=== PATIENT | male | born 1940 | race African-American/Black ===

== ENCOUNTER 2018-02-13 10:55 | Emergency (ER) | payer OTHER, MEDICAID ==
[~2018-02-13] VITALS: Ht 172.7 cm; Wt 80.0 kg
[~2018-02-13 10:55] MED LIST: METFORMIN
[2018-02-13] MEDS ORDERED: IBUPROFEN 600MG TABLET PO ONE (12:30)
[2018-02-13 12:46] VITALS: BP 143/90
== END 2018-02-13 12:50 | disposition home or self-care (01) ==
LOC: ER 10:55
DX: T14.8XXA Other injury of unspecified body region, initial encounter (principal); V03.90XA Pedestrian on foot injured in collision with car, pick-up truck or van, unspecified whether traffic or nontraffic accident, initial encounter; Y93.89 Activity, other specified; Y92.488 Other paved roadways as the place of occurrence of the external cause
CPT/HCPCS: 99283

== ENCOUNTER 2018-03-14 16:22 | Emergency (ER) | payer OTHER ==
[~2018-03-14] VITALS: Ht 175.3 cm; Wt 75.0 kg
[2018-03-14 16:52] VITALS: BP 159/88
== END 2018-03-14 22:01 | disposition home or self-care (01) ==
LOC: ER 16:22
DX: S40.011A Contusion of right shoulder, initial encounter (principal); S70.01XA Contusion of right hip, initial encounter; E11.9 Type 2 diabetes mellitus without complications; I10 Essential (primary) hypertension; V03.19XA Pedestrian with other conveyance injured in collision with car, pick-up truck or van in traffic accident, initial encounter; Y93.89 Activity, other specified; Y92.89 Other specified places as the place of occurrence of the external cause; Y99.8 Other external cause status; Z86.73 Personal history of transient ischemic attack (TIA), and cerebral infarction without residual deficits; Z87.891 Personal history of nicotine dependence
CPT/HCPCS: 73030; 73080; 73502; 99283

== ENCOUNTER 2020-09-14 08:27 | Emergency (ER) | payer OTHER, MEDICAID ==
[~2020-09-14] VITALS: Ht 182.9 cm; Wt 82.0 kg
[2020-09-14] MEDS ORDERED: SODIUM CHLORIDE 0.9% 1,000 ML IV ONE (09:30)
[2020-09-14 10:04] LABS: BASOPHILS % 0.5 % (0.0-2.0); EOSINOPHILS % 0.2 % (0.0-5.0); HEMATOCRIT. 41.9 % (42.0-52.0); HEMOGLOBIN. 13.6 g/dL (14.0-18.0); LYMPHOCYTES % 10.4 % (20.0-50.0); MEAN CORPUSCULAR HEMOGLOBIN 26.8 pg (28.0-32.0); MEAN CORPUSCULAR VOLUME 82.3 fL (80.0-94.0); MEAN PLATELET VOLUME 7.7 fl (7.4-10.4); MONOCYTES % 9.1 % (2.0-8.0); NEUTROPHILS % 79.8 % (40.0-76.0); PLATELET 208 x1000/uL (130-400); RED BLOOD CELL COUNT 5.09 mill/uL (4.7-6.1); RED CELL DISTRIBUTION WIDTH 15.8 % (11.6-14.6)
[2020-09-14 10:11] LABS: CHLORIDE 106 mEq/L (98-107)
[2020-09-14 10:16] LABS: INR 1.1; PROTHROMBIN TIME 11.4 sec (9.6-11.0)
[2020-09-14 10:25] LABS: CLARITY URINE CLEAR (CLEAR); COLOR URINE YELLOW (YELLOW); KETONES URINE NEGATIVE (NEGATIVE); LEUKOCYTE ESTERASE URINE NEGATIVE (NEGATIVE); NITRITE URINE NEGATIVE (NEGATIVE); OCCULT BLOOD URINE NEGATIVE (NEGATIVE); PH URINE 6.5 (4.5-8.0); PROTEIN URINE NEGATIVE (NEGATIVE)
[2020-09-14 13:34] VITALS: BP 150/77
== END 2020-09-14 13:36 | disposition home or self-care (01) ==
LOC: ER 08:27
DX: R32 Unspecified urinary incontinence (principal); E11.9 Type 2 diabetes mellitus without complications
CPT/HCPCS: 36415; 80053; 81003; 85025; 85610; 96360; 99283; J7030

== ENCOUNTER 2020-12-06 18:12 | Inpatient (IN) | payer OTHER, MEDICAID ==
[~2020-12-06] VITALS: Ht 170.2 cm; Wt 78.2 kg
[~2020-12-06 18:12] MED LIST changes: +ASPI-1160 PO; +LIP40 PO; +RISP1 PO
[2020-12-06] MEDS ORDERED: SODIUM CHLORIDE 0.9% 1,000 ML IV ONE (19:00)
[2020-12-06 19:13] LABS: BASOPHILS % 0.5 % (0.0-2.0); EOSINOPHILS % 0.6 % (0.0-5.0); HEMATOCRIT. 40.8 % (42.0-52.0); HEMOGLOBIN. 13.5 g/dL (14.0-18.0); LYMPHOCYTES % 10.3 % (20.0-50.0); MEAN CORPUSCULAR HEMOGLOBIN 27.7 pg (28.0-32.0); MEAN CORPUSCULAR VOLUME 83.5 fL (80.0-94.0); MEAN PLATELET VOLUME 7.4 fl (7.4-10.4); MONOCYTES % 7.1 % (2.0-8.0); NEUTROPHILS % 81.5 % (40.0-76.0); PLATELET 290 x1000/uL (130-400); RED BLOOD CELL COUNT 4.88 mill/uL (4.7-6.1); RED CELL DISTRIBUTION WIDTH 15.4 % (11.6-14.6)
[2020-12-06 19:21] LABS: CHLORIDE 106 mEq/L (98-107)
[2020-12-06 19:25] LABS: ETHANOL BLOOD < 10 mg/dL
[2020-12-06 19:29] LABS: CREATINE KINASE 493 IU/L (39-308)
[2020-12-06] MEDS ORDERED: LORAZEPAM 2MG/ML CPJ IV NR (20:15)
[2020-12-06 21:40] LABS: CLARITY URINE CLEAR (CLEAR); COLOR URINE YELLOW (YELLOW); KETONES URINE TRACE (NEGATIVE); LEUKOCYTE ESTERASE URINE NEGATIVE (NEGATIVE); NITRITE URINE NEGATIVE (NEGATIVE); OCCULT BLOOD URINE NEGATIVE (NEGATIVE); PH URINE 5.5 (4.5-8.0); PROTEIN URINE 1+ (NEGATIVE); SPECIFIC GRAVITY URINE 1.027 (1.005-1.030)
[2020-12-06 21:48] LABS: CANNABINOID URINE SCREEN NEGATIVE (NEGATIVE); PHENCYCLIDINE URINE SCREEN NEGATIVE (NEGATIVE)
[2020-12-06 21:49] LABS: *AMPHETAMINES SCREEN URINE NEGATIVE (NEGATIVE); *BARBITURATES SCREEN URINE NEGATIVE (NEGATIVE); *BENZODIAZEPINES SCREEN URINE NEGATIVE (NEGATIVE); *COCAINE SCREEN URINE NEGATIVE (NEGATIVE); METHADONE URINE SCREEN NEGATIVE (NEGATIVE); OPIATES URINE SCREEN NEGATIVE (NEGATIVE)
[2020-12-07 05:14] VITALS: BP 113/68
[2020-12-07] MEDS ORDERED: DEXTROSE 50% WATER 50ML SYRINGE IV PRN (05:30)
[2020-12-07] MEDS ORDERED: ACETAMINOPHEN 325MG TABLET PO PRN (05:30)
[2020-12-07] MEDS: INSULIN LISPRO 100 UNITS/ML SUBCUT SCH ×4 (05:47→20:36)
[2020-12-07] MEDS: BLOOD SUGAR DIAGNOSTIC STRIP TEST SCH ×4 (05:47→20:36)
[2020-12-07 08:30] VITALS: BP 123/80
[2020-12-07] MEDS ORDERED: SODIUM CHLORIDE 0.9% 1,000 ML IV SCH (09:00)
[2020-12-07] MEDS: ASPIRIN 81MG TABLET PO SCH (09:56)
[2020-12-07] MEDS: ENOXAPARIN 40MG/0.4ML SYR SUBCUT SCH (09:57)
[2020-12-07 11:57] LABS: BASOPHILS % 0.6 % (0.0-2.0); EOSINOPHILS % 0.5 % (0.0-5.0); HEMATOCRIT. 41.1 % (42.0-52.0); HEMOGLOBIN. 13.4 g/dL (14.0-18.0); LYMPHOCYTES % 16.1 % (20.0-50.0); MEAN CORPUSCULAR HEMOGLOBIN 27.2 pg (28.0-32.0); MEAN CORPUSCULAR VOLUME 83.6 fL (80.0-94.0); MEAN PLATELET VOLUME 8.1 fl (7.4-10.4); MONOCYTES % 8.1 % (2.0-8.0); NEUTROPHILS % 74.7 % (40.0-76.0); PLATELET 302 x1000/uL (130-400); RED BLOOD CELL COUNT 4.92 mill/uL (4.7-6.1); RED CELL DISTRIBUTION WIDTH 15.5 % (11.6-14.6)
[2020-12-07 11:58] LABS: CHLORIDE 110 mEq/L (98-107)
[2020-12-07 12:00] VITALS: BP 138/87
[2020-12-07 12:07] LABS: CREATINE KINASE 602 IU/L (39-308); CREATINE KINASE MB FRACTION 7.9 ng/mL (0.5-3.6)
[2020-12-07 12:26] LABS: INR 1.1; PROTHROMBIN TIME 11.5 sec (9.6-11.0)
[2020-12-07] MEDS: CEFTRIAXONE 1,000 MG in DEXTROSE 5% WATER 50 ML IV SCH (13:11)
[2020-12-07] MEDS ORDERED: BISACODYL 10MG SUPP PR PRN (13:15)
[2020-12-07] MEDS ORDERED: HYDRALAZINE 20MG/ML VIAL IV PRN (13:15)
[2020-12-07] MEDS ORDERED: ONDANSETRON HCL 4MG/2ML INJ IV PRN (13:15)
[2020-12-07] MEDS ORDERED: IPRATROPIUM/ALBUTEROL 0.5-3(2.5)MG/3ML NEB HHN PRN (13:15)
[2020-12-07 14:02] LABS: BG BASE EXCESS -2.2 mmol/L (-2.0-2.0); BG CARBOXYHEMOGLOBIN 0.4 % (0.5-1.5); BG DEOXYHEMOGLOBIN 4.1 % (0.0-5.0); BG FRACTION INSPIRED OXYGEN 21; BG HCO3 ACT 21.4 mmol/L (22.0-26.0); BG METHEMOGLOBIN 0.3 % (0.0-1.5); BG OXYGEN SATURATION 95.9 % (92.0-98.5); BG OXYHEMOGLOBIN 95.2 % (94.0-97.0); BG PCO2 33.2 mmHg (35.0-45.0); BG PH 7.427 (7.350-7.450); BG PO2 81.4 mmHg (75.0-100.0); BG SAMPLE SITE LEFT RADIAL; BG VENT MODE ROOM AIR
[2020-12-07 16:30] VITALS: BP 145/92
[2020-12-07] MEDS: DEXT 5%/0.45% NACL 1000ML 1,000 ML IV SCH (17:04)
[2020-12-07 19:31] LABS: CREATINE KINASE MB FRACTION 5.4 ng/mL (0.5-3.6)
[2020-12-07] MEDS: LORAZEPAM 2MG/ML CPJ IV PRN (20:33)
[2020-12-07] MEDS: MEMANTINE HCL 5MG TABLET PO SCH (21:54)
[2020-12-08] VITALS: BP 133/91
[2020-12-08] MEDS: LORAZEPAM 2MG/ML CPJ IV PRN ×4 (01:26→21:03)
[2020-12-08 04:00] VITALS: BP 130/90
[2020-12-08] MEDS: DEXT 5%/0.45% NACL 1000ML 1,000 ML IV SCH ×2 (05:01→16:55)
[2020-12-08] MEDS: BLOOD SUGAR DIAGNOSTIC STRIP TEST SCH ×4 (06:40→21:13)
[2020-12-08] MEDS: INSULIN LISPRO 100 UNITS/ML SUBCUT SCH ×4 (07:10→21:00)
[2020-12-08 08:00] VITALS: BP 141/77
[2020-12-08] MEDS: CEFTRIAXONE 1,000 MG in DEXTROSE 5% WATER 50 ML IV SCH (10:17)
[2020-12-08] MEDS: MEMANTINE HCL 5MG TABLET PO SCH ×2 (10:17→21:03)
[2020-12-08] MEDS: ASPIRIN 81MG TABLET PO SCH (10:17)
[2020-12-08] MEDS: ENOXAPARIN 40MG/0.4ML SYR SUBCUT SCH (10:17)
[2020-12-08 12:17] VITALS: BP 147/72
[2020-12-08 16:00] VITALS: BP 144/86
[2020-12-08 16:51] LABS: BASOPHILS % 0.5 % (0.0-2.0); EOSINOPHILS % 2.2 % (0.0-5.0); HEMATOCRIT. 36.8 % (42.0-52.0); HEMOGLOBIN. 12.2 g/dL (14.0-18.0); LYMPHOCYTES % 15.8 % (20.0-50.0); MEAN CORPUSCULAR HEMOGLOBIN 27.5 pg (28.0-32.0); MEAN CORPUSCULAR VOLUME 83.2 fL (80.0-94.0); MEAN PLATELET VOLUME 7.6 fl (7.4-10.4); MONOCYTES % 9.4 % (2.0-8.0); NEUTROPHILS % 72.1 % (40.0-76.0); PLATELET 278 x1000/uL (130-400); RED BLOOD CELL COUNT 4.42 mill/uL (4.7-6.1); RED CELL DISTRIBUTION WIDTH 15.3 % (11.6-14.6)
[2020-12-08 16:58] LABS: CHLORIDE 109 mEq/L (98-107)
[2020-12-08 20:00] VITALS: BP 165/78
[2020-12-09] VITALS: BP 153/93
[2020-12-09] MEDS: DEXT 5%/0.45% NACL 1000ML 1,000 ML IV SCH ×2 (00:44→20:29)
[2020-12-09 04:00] VITALS: BP 171/117
[2020-12-09] MEDS: BLOOD SUGAR DIAGNOSTIC STRIP TEST SCH ×4 (06:41→20:21)
[2020-12-09] MEDS: INSULIN LISPRO 100 UNITS/ML SUBCUT SCH ×4 (06:42→20:21)
[2020-12-09 08:00] VITALS: BP 157/95
[2020-12-09] MEDS: LORAZEPAM 2MG/ML CPJ IV PRN (10:12)
[2020-12-09] MEDS: CEFTRIAXONE 1,000 MG in DEXTROSE 5% WATER 50 ML IV SCH (10:13)
[2020-12-09] MEDS ORDERED: LORAZEPAM 2MG/ML CPJ IV PRN (10:45)
[2020-12-09] MEDS: ASPIRIN 81MG TABLET PO SCH (11:06)
[2020-12-09] MEDS: MEMANTINE HCL 5MG TABLET PO SCH ×2 (11:06→20:26)
[2020-12-09] MEDS: ENOXAPARIN 40MG/0.4ML SYR SUBCUT SCH (11:07)
[2020-12-09 16:00] VITALS: BP 145/78
[2020-12-09 16:19] LABS: BASOPHILS % 0.9 % (0.0-2.0); EOSINOPHILS % 2.3 % (0.0-5.0); HEMOGLOBIN. 12.6 g/dL (14.0-18.0); LYMPHOCYTES % 22.2 % (20.0-50.0); MEAN CORPUSCULAR HEMOGLOBIN 27.5 pg (28.0-32.0); MEAN CORPUSCULAR VOLUME 83.3 fL (80.0-94.0); MEAN PLATELET VOLUME 7.6 fl (7.4-10.4); NEUTROPHILS % 61.6 % (40.0-76.0); PLATELET 289 x1000/uL (130-400); RED BLOOD CELL COUNT 4.56 mill/uL (4.7-6.1); RED CELL DISTRIBUTION WIDTH 15.3 % (11.6-14.6)
[2020-12-09 16:22] LABS: CHLORIDE 108 mEq/L (98-107)
[2020-12-09 20:00] VITALS: BP 128/86
[2020-12-09] MEDS: QUETIAPINE FUMARATE 25MG TABLET PO SCH (20:26)
[2020-12-09 22:00] VITALS: BP 158/80
[2020-12-10] VITALS: BP 158/57
[2020-12-10 04:00] VITALS: BP 154/70
[2020-12-10] MEDS: BLOOD SUGAR DIAGNOSTIC STRIP TEST SCH ×4 (06:34→20:36)
[2020-12-10] MEDS: INSULIN LISPRO 100 UNITS/ML SUBCUT SCH ×4 (06:34→20:37)
[2020-12-10 06:39] LABS: BASOPHILS % 1.1 % (0.0-2.0); EOSINOPHILS % 3.8 % (0.0-5.0); HEMATOCRIT. 38.2 % (42.0-52.0); HEMOGLOBIN. 12.7 g/dL (14.0-18.0); LYMPHOCYTES % 23.7 % (20.0-50.0); MEAN CORPUSCULAR HEMOGLOBIN 27.9 pg (28.0-32.0); MEAN CORPUSCULAR VOLUME 84.1 fL (80.0-94.0); MEAN PLATELET VOLUME 7.5 fl (7.4-10.4); MONOCYTES % 12.5 % (2.0-8.0); NEUTROPHILS % 58.9 % (40.0-76.0); PLATELET 301 x1000/uL (130-400); RED BLOOD CELL COUNT 4.55 mill/uL (4.7-6.1); RED CELL DISTRIBUTION WIDTH 15.2 % (11.6-14.6)
[2020-12-10 06:50] LABS: CHLORIDE 108 mEq/L (98-107)
[2020-12-10 08:00] VITALS: BP 134/71
[2020-12-10] MEDS: MEMANTINE HCL 5MG TABLET PO SCH ×2 (08:12→20:31)
[2020-12-10] MEDS: ASPIRIN 81MG TABLET PO SCH (08:12)
[2020-12-10] MEDS: QUETIAPINE FUMARATE 25MG TABLET PO SCH ×2 (08:12→20:32)
[2020-12-10] MEDS: DEXT 5%/0.45% NACL 1000ML 1,000 ML IV SCH (08:13)
[2020-12-10] MEDS: ENOXAPARIN 40MG/0.4ML SYR SUBCUT SCH (08:13)
[2020-12-10] MEDS: CEFTRIAXONE 1,000 MG in DEXTROSE 5% WATER 50 ML IV SCH (08:13)
[2020-12-10] MEDS ORDERED: IOHEXOL-350 100 ML BOTTLE ONE (12:16)
[2020-12-10] MEDS: LORAZEPAM 2MG/ML CPJ IV PRN ×2 (15:44→22:03)
[2020-12-10] MEDS: LEVOFLOXACIN 500MG PREMIX 100 ML IV SCH (15:44)
[2020-12-10 16:00] VITALS: BP 136/74
[2020-12-10 20:00] VITALS: BP 135/84
[2020-12-11] VITALS: BP 157/94
[2020-12-11] MEDS: DEXT 5%/0.45% NACL 1000ML 1,000 ML IV SCH ×2 (04:54→11:15)
[2020-12-11] MEDS: BLOOD SUGAR DIAGNOSTIC STRIP TEST SCH ×3 (06:09→17:23)
[2020-12-11] MEDS: INSULIN LISPRO 100 UNITS/ML SUBCUT SCH ×3 (06:10→17:10)
[2020-12-11 06:34] LABS: CHLORIDE 110 mEq/L (98-107)
[2020-12-11 06:35] LABS: BASOPHILS % 0.7 % (0.0-2.0); EOSINOPHILS % 3.6 % (0.0-5.0); HEMATOCRIT. 36.3 % (42.0-52.0); LYMPHOCYTES % 22.9 % (20.0-50.0); MEAN CORPUSCULAR HEMOGLOBIN 27.4 pg (28.0-32.0); MEAN CORPUSCULAR VOLUME 83.3 fL (80.0-94.0); MONOCYTES % 12.5 % (2.0-8.0); NEUTROPHILS % 60.3 % (40.0-76.0); PLATELET 252 x1000/uL (130-400); RED BLOOD CELL COUNT 4.36 mill/uL (4.7-6.1); RED CELL DISTRIBUTION WIDTH 15.1 % (11.6-14.6)
[2020-12-11 08:00] VITALS: BP 159/76
[2020-12-11] MEDS: MEMANTINE HCL 5MG TABLET PO SCH ×2 (08:28→20:38)
[2020-12-11] MEDS: ASPIRIN 81MG TABLET PO SCH (08:28)
[2020-12-11] MEDS: QUETIAPINE FUMARATE 50MG TABLET PO SCH ×2 (08:29→20:38)
[2020-12-11] MEDS: ENOXAPARIN 40MG/0.4ML SYR SUBCUT SCH (08:29)
[2020-12-11] MEDS: LORAZEPAM 2MG/ML CPJ IV PRN ×2 (08:29→16:30)
[2020-12-11] MEDS: CEFTRIAXONE 1,000 MG in DEXTROSE 5% WATER 50 ML IV SCH (08:38)
[2020-12-11 12:00] VITALS: BP 142/29
[2020-12-11] MEDS: LEVOFLOXACIN 500MG PREMIX 100 ML IV SCH (12:22)
[2020-12-11 16:00] VITALS: BP 126/78
[2020-12-11 20:00] VITALS: BP 178/98
== END 2020-12-11 21:53 | DRG 91 ==
LOC: ER 18:12 → 7EST 12-07 02:02 → ENRESERV 12-07 02:52
PROVIDERS: ADMIT Internal Medicine; ATTEND Internal Medicine
DX: G92.8 Other toxic encephalopathy (principal); I50.43 Acute on chronic combined systolic (congestive) and diastolic (congestive) heart failure; M62.82 Rhabdomyolysis; I11.0 Hypertensive heart disease with heart failure; D64.9 Anemia, unspecified; E11.9 Type 2 diabetes mellitus without complications; R29.6 Repeated falls; T50.905A Adverse effect of unspecified drugs, medicaments and biological substances, initial encounter; E04.9 Nontoxic goiter, unspecified; F03.90 Unspecified dementia, unspecified severity, without behavioral disturbance, psychotic disturbance, mood disturbance, and anxiety; Z20.822 Contact with and (suspected) exposure to COVID-19; F20.9 Schizophrenia, unspecified; I77.810 Thoracic aortic ectasia; Z79.899 Other long term (current) drug therapy; Y92.89 Other specified places as the place of occurrence of the external cause; Z79.82 Long term (current) use of aspirin; I69.30 Unspecified sequelae of cerebral infarction; Z79.84 Long term (current) use of oral hypoglycemic drugs
CPT/HCPCS: 36415; 36600; 71045; 71275; 80048; 80053; 80305; 80320; 81003; 82140; 82375; 82550; 82553; 82805; 82962; 83036; 83605; 83880; 84145; 84484; 85025; 87426; 92610; 93005; 93306; 97162; 97165; 97530; 99285; J0360; J0696; J1650; J1815; J1956; J2060; J7030; J7060; Q9967; G0480

== ENCOUNTER 2021-02-03 13:42 | Emergency (ER) | payer OTHER, MEDICAID ==
[~2021-02-03] VITALS: Ht 182.9 cm; Wt 82.0 kg
[~2021-02-03 13:42] MED LIST changes: -METFORMIN; -RISP1 PO
[2021-02-03] MEDS ORDERED: LIDOCAINE HCL/EPINEPHRINE 1%-EPI 1:100,000 50 ML VIAL INFIL ONE (16:00)
[2021-02-03 16:32] LABS: BASOPHILS % 0.4 % (0.0-2.0); EOSINOPHILS % 0.4 % (0.0-5.0); HEMATOCRIT. 42.5 % (42.0-52.0); HEMOGLOBIN. 13.5 g/dL (14.0-18.0); LYMPHOCYTES % 22.5 % (20.0-50.0); MEAN CORPUSCULAR VOLUME 85.1 fL (80.0-94.0); MONOCYTES % 9.8 % (2.0-8.0); NEUTROPHILS % 66.9 % (40.0-76.0); PLATELET 199 x1000/uL (130-400); RED CELL DISTRIBUTION WIDTH 15.5 % (11.6-14.6)
[2021-02-03] MEDS ORDERED: LIDOCAINE HCL/EPINEPHRINE 1%-EPI 1:100,000 20 ML VIAL INFIL NR (17:06)
[2021-02-03 17:26] LABS: CHLORIDE 110 mEq/L (98-107)
[2021-02-03 21:54] VITALS: BP 115/70
== END 2021-02-03 21:56 | disposition home or self-care (01) ==
LOC: ER 13:50
DX: S01.111A Laceration without foreign body of right eyelid and periocular area, initial encounter (principal); R51.9 Headache, unspecified; I10 Essential (primary) hypertension; E11.9 Type 2 diabetes mellitus without complications; W03.XXXA Other fall on same level due to collision with another person, initial encounter; Y93.89 Activity, other specified; Y92.89 Other specified places as the place of occurrence of the external cause; Y99.8 Other external cause status; Z86.73 Personal history of transient ischemic attack (TIA), and cerebral infarction without residual deficits; Z86.59 Personal history of other mental and behavioral disorders
CPT/HCPCS: 12013; 36415; 70450; 71045; 72125; 80053; 83880; 84484; 85025; 93005; 99285; J3490

== ENCOUNTER 2021-05-26 02:57 | Emergency (ER) | payer OTHER, MEDICAID ==
[~2021-05-26] VITALS: Ht 180.3 cm; Wt 73.0 kg
[2021-05-26] MEDS ORDERED: ACETAMINOPHEN 500MG TABLET PO ONE (04:00)
[2021-05-26] MEDS ORDERED: ACETAMINOPHEN 325MG TABLET PO ONE (09:30)
[2021-05-26] MEDS ORDERED: QUETIAPINE FUMARATE 25MG TABLET PO SCH (09:30)
[2021-05-26 22:45] VITALS: BP 152/71
== END 2021-05-26 23:12 | disposition home or self-care (01) ==
LOC: ER 02:57
DX: M79.602 Pain in left arm (principal); F03.90 Unspecified dementia, unspecified severity, without behavioral disturbance, psychotic disturbance, mood disturbance, and anxiety; I10 Essential (primary) hypertension; E11.9 Type 2 diabetes mellitus without complications; Z86.73 Personal history of transient ischemic attack (TIA), and cerebral infarction without residual deficits; Z86.59 Personal history of other mental and behavioral disorders
CPT/HCPCS: 73030; 73080; 73110; 99284

== ENCOUNTER 2021-06-24 18:06 | Inpatient (IN) | payer OTHER, MEDICAID ==
[~2021-06-24] VITALS: Ht 177.8 cm; Wt 54.0 kg
[2021-06-24 19:37] LABS: BASOPHILS % 0.5 % (0.0-2.0); EOSINOPHILS % 0.1 % (0.0-5.0); HEMATOCRIT. 37.1 % (42.0-52.0); HEMOGLOBIN. 12.1 g/dL (14.0-18.0); LYMPHOCYTES % 9.9 % (20.0-50.0); MEAN CORPUSCULAR HEMOGLOBIN 28.7 pg (28.0-32.0); MEAN CORPUSCULAR VOLUME 88.1 fL (80.0-94.0); MEAN PLATELET VOLUME 7.7 fl (7.4-10.4); MONOCYTES % 5.5 % (2.0-8.0); PLATELET 214 x1000/uL (130-400); RED BLOOD CELL COUNT 4.21 mill/uL (4.7-6.1); RED CELL DISTRIBUTION WIDTH 17.6 % (11.6-14.6)
[2021-06-24 19:46] LABS: CHLORIDE 100 mEq/L (98-107)
[2021-06-24 19:48] LABS: INR 1.1; PARTIAL THROMBOPLASTIN TIME 21.1 sec (23.4-31.0); PROTHROMBIN TIME 12.2 sec (9.6-11.0)
[2021-06-24] MEDS ORDERED: IOHEXOL-350 100 ML BOTTLE ONE (21:12)
[2021-06-25] MEDS ORDERED: ASPIRIN 81MG TABLET PO ONE (02:15)
[2021-06-25] MEDS ORDERED: ASPIRIN 81MG TABLET PO NR (04:15)
[2021-06-25 04:50] VITALS: BP 153/67
[2021-06-25] MEDS ORDERED: ACETAMINOPHEN 325MG TABLET PO PRN (06:15)
[2021-06-25] MEDS ORDERED: DEXTROSE 50% WATER 50ML SYRINGE IV PRN (06:15)
[2021-06-25] MEDS ORDERED: CLONIDINE 0.1MG TABLET PO PRN (06:15)
[2021-06-25] MEDS ORDERED: DONE5TAB7 PO (06:17)
[2021-06-25] MEDS ORDERED: MEMA10TA2 PO (06:17)
[2021-06-25] MEDS ORDERED: METF-414 PO (06:17)
[2021-06-25] MEDS: BLOOD SUGAR DIAGNOSTIC STRIP TEST SCH ×4 (07:13→21:29)
[2021-06-25 08:30] VITALS: BP 134/69
[2021-06-25] MEDS: ASPIRIN 81MG TABLET PO SCH (09:17)
[2021-06-25] MEDS: MEMANTINE HCL 10MG TABLET PO SCH (09:17)
[2021-06-25] MEDS: ENOXAPARIN 30MG/0.3ML SYR SUBCUT SCH (09:18)
[2021-06-25] MEDS: INSULIN LISPRO 100 UNITS/ML SUBCUT SCH ×4 (09:19→21:00)
[2021-06-25 12:20] VITALS: BP 117/68
[2021-06-25] MEDS ORDERED: LORAZEPAM 2MG/ML CPJ IV NR (14:30)
[2021-06-25 16:30] VITALS: BP 144/72
[2021-06-25] MEDS ORDERED: IPRATROPIUM/ALBUTEROL 0.5-3(2.5)MG/3ML NEB HHN PRN (16:30)
[2021-06-25] MEDS ORDERED: NALOXONE HCL 0.4MG/ML VIAL IV PRN (16:30)
[2021-06-25] MEDS ORDERED: BISACODYL 10MG SUPP PR PRN (16:30)
[2021-06-25] MEDS ORDERED: HYDROCODONE/ACETAMINOPHEN 5/325MG TABLET PO PRN (16:30)
[2021-06-25 17:08] LABS: CLARITY URINE CLOUDY (CLEAR); COLOR URINE DARK YELLOW (YELLOW); KETONES URINE NEGATIVE (NEGATIVE); LEUKOCYTE ESTERASE URINE 1+ (NEGATIVE); NITRITE URINE POSITIVE (NEGATIVE); OCCULT BLOOD URINE NEGATIVE (NEGATIVE); PROTEIN URINE 1+ (NEGATIVE); SPECIFIC GRAVITY URINE 1.049 (1.005-1.030); UROBILINOGEN URINE 0.2 E.U./dL (0.2-1.0)
[2021-06-25 17:20] LABS: BG BASE EXCESS 3.3 mmol/L (-2.0-2.0); BG CARBOXYHEMOGLOBIN 0.3 % (0.5-1.5); BG DEOXYHEMOGLOBIN 1.9 % (0.0-5.0); BG FRACTION INSPIRED OXYGEN 21; BG HCO3 ACT 27.5 mmol/L (22.0-26.0); BG METHEMOGLOBIN 0.3 % (0.0-1.5); BG OXYGEN SATURATION 98.1 % (92.0-98.5); BG OXYHEMOGLOBIN 97.5 % (94.0-97.0); BG PCO2 40.4 mmHg (35.0-45.0); BG PH 7.451 (7.350-7.450); BG PO2 105.5 mmHg (75.0-100.0); BG SAMPLE SITE RIGHT RADIAL; BG TOTAL HEMOGLOBIN 10.6 g/dL (12.0-18.0); BG VENT MODE ROOM AIR
[2021-06-25 17:47] LABS: BASOPHILS % 0.5 % (0.0-2.0); EOSINOPHILS % 0.7 % (0.0-5.0); HEMATOCRIT. 29.6 % (42.0-52.0); HEMOGLOBIN. 10.1 g/dL (14.0-18.0); LYMPHOCYTES % 24.8 % (20.0-50.0); MEAN CORPUSCULAR HEMOGLOBIN 29.3 pg (28.0-32.0); MEAN CORPUSCULAR VOLUME 86.3 fL (80.0-94.0); MEAN PLATELET VOLUME 7.5 fl (7.4-10.4); MONOCYTES % 9.6 % (2.0-8.0); NEUTROPHILS % 64.4 % (40.0-76.0); PLATELET 214 x1000/uL (130-400); RED BLOOD CELL COUNT 3.43 mill/uL (4.7-6.1); RED CELL DISTRIBUTION WIDTH 17.2 % (11.6-14.6)
[2021-06-25 18:02] LABS: CHLORIDE 107 mEq/L (98-107)
[2021-06-25] MEDS: CEFTRIAXONE 1,000 MG in DEXTROSE 5% WATER 50 ML IV SCH (18:47)
[2021-06-25 20:00] VITALS: BP 136/75
[2021-06-25] MEDS: ATORVASTATIN CALCIUM 40MG TABLET PO SCH (21:28)
[2021-06-25] MEDS: DONEPEZIL HCL 5MG TABLET PO SCH (21:28)
[2021-06-25] MEDS: FAMOTIDINE 20MG TABLET PO SCH (21:29)
[2021-06-26] VITALS: BP 136/75
[2021-06-26 03:30] VITALS: BP 136/75
[2021-06-26 07:17] LABS: BASOPHILS % 0.5 % (0.0-2.0); EOSINOPHILS % 1.3 % (0.0-5.0); HEMATOCRIT. 34.2 % (42.0-52.0); HEMOGLOBIN. 11.3 g/dL (14.0-18.0); LYMPHOCYTES % 35.3 % (20.0-50.0); MEAN CORPUSCULAR HEMOGLOBIN 28.7 pg (28.0-32.0); MEAN CORPUSCULAR VOLUME 86.9 fL (80.0-94.0); MEAN PLATELET VOLUME 7.7 fl (7.4-10.4); MONOCYTES % 12.2 % (2.0-8.0); NEUTROPHILS % 50.7 % (40.0-76.0); PLATELET 226 x1000/uL (130-400); RED BLOOD CELL COUNT 3.94 mill/uL (4.7-6.1); RED CELL DISTRIBUTION WIDTH 17.5 % (11.6-14.6)
[2021-06-26] MEDS: BLOOD SUGAR DIAGNOSTIC STRIP TEST SCH ×4 (07:20→21:12)
[2021-06-26 07:34] LABS: CHLORIDE 107 mEq/L (98-107)
[2021-06-26] MEDS: INSULIN LISPRO 100 UNITS/ML SUBCUT SCH ×4 (07:50→21:00)
[2021-06-26 08:33] VITALS: BP 154/77
[2021-06-26] MEDS: ASPIRIN 81MG TABLET PO SCH (10:04)
[2021-06-26] MEDS: ENOXAPARIN 30MG/0.3ML SYR SUBCUT SCH (10:04)
[2021-06-26] MEDS: MEMANTINE HCL 10MG TABLET PO SCH (10:09)
[2021-06-26 12:00] VITALS: BP 154/61
[2021-06-26 17:13] VITALS: BP 123/52
[2021-06-26] MEDS: CEFTRIAXONE 1,000 MG in DEXTROSE 5% WATER 50 ML IV SCH (17:41)
[2021-06-26 20:00] VITALS: BP 149/68
[2021-06-26] MEDS: DONEPEZIL HCL 5MG TABLET PO SCH (21:11)
[2021-06-26] MEDS: ATORVASTATIN CALCIUM 40MG TABLET PO SCH (21:11)
[2021-06-26] MEDS: FAMOTIDINE 20MG TABLET PO SCH (21:11)
[2021-06-27] VITALS: BP 157/70
[2021-06-27 04:00] VITALS: BP 147/80
[2021-06-27 06:09] VITALS: BP_SYST 147; BP_SYST 150; BP_DIAS 76; BP_DIAS 80
[2021-06-27] MEDS: BLOOD SUGAR DIAGNOSTIC STRIP TEST SCH (06:30)
[2021-06-27] MEDS: INSULIN LISPRO 100 UNITS/ML SUBCUT SCH (07:50)
[2021-06-27 08:00] VITALS: BP 150/76
== END 2021-06-27 10:03 | disposition home or self-care (01) | DRG 70 ==
LOC: ER 18:06 → MICUSO 23:02 → EDBEDREQTM 23:14 → EDBEDREQ 23:14 → 6WST 06-25 04:12
PROVIDERS: ADMIT Internal Medicine; ATTEND Internal Medicine
DX: G93.41 Metabolic encephalopathy (principal); E43 Unspecified severe protein-calorie malnutrition; E87.1 Hypo-osmolality and hyponatremia; I67.82 Cerebral ischemia; E11.65 Type 2 diabetes mellitus with hyperglycemia; I10 Essential (primary) hypertension; D64.9 Anemia, unspecified; F03.90 Unspecified dementia, unspecified severity, without behavioral disturbance, psychotic disturbance, mood disturbance, and anxiety; F20.9 Schizophrenia, unspecified; Z86.73 Personal history of transient ischemic attack (TIA), and cerebral infarction without residual deficits; N43.3 Hydrocele, unspecified
CPT/HCPCS: 36415; 36600; 70496; 70498; 70551; 71045; 74176; 80048; 80053; 81003; 82140; 82375; 82805; 82962; 83036; 84145; 84484; 85025; 87077; 87186; 93005; 93306; 97161; 97166; 99291; J0696; J1650; J1815; J2060; J7060; Q9967